=== PATIENT | female | born 1980 | race Asian ===

== ENCOUNTER 2018-08-17 08:55 | Inpatient (IN) | payer OTHER ==
[2018-08-17 10:08] VITALS: BMI 32.5
[2018-08-17] MEDS ORDERED: morphine SULFATE/PF 0.5 MG/ML (2cc Syringe - QUVA) EP ONE (10:43)
[2018-08-17] MEDS ORDERED: ELECTROLYTE-148 SOLN 1,000 ML IV ONE (10:45)
[2018-08-17] MEDS ORDERED: ELECTROLYTE-148 SOLN 1,000 ML IV SCH (10:45)
[2018-08-17] MEDS ORDERED: CITRIC ACID/SODIUM CITRATE 30 ML UNIT-DOSE CUP PO ONE (10:45)
[2018-08-17] MEDS ORDERED: ceFAZolin SODIUM 1 GM VIAL ONE (10:50)
[2018-08-17] MEDS ORDERED: OXYTOCIN 20 UNITS in 0.9% NS 20 UNIT/1,000 ML INFUS.BAG IV ONE ×2 (11:17→14:26)
[2018-08-17] MEDS ORDERED: OXYTOCIN 10 UNITS/ML VIAL ONE (11:28)
[2018-08-17] MEDS ORDERED: METHYLERGONOVINE MALEATE 0.2 MG/1 ML AMP IM PRN (12:39)
[2018-08-17] MEDS ORDERED: IBUPROFEN 600 MG TABLET (FP) PO PRN (12:39)
[2018-08-17] MEDS ORDERED: IBUPROFEN 800 MG/8 ML IJ IVPB PRN (12:39)
--- NOTE | 2018-08-17 12:45 | HP ---
Past Medical History - Admission History Source: Patient Limitations to Obtaining History: No Limitations - Past Medical History ...: 6 ...Para: 4 ...Term: 4 ...: 0 ...Spon : 0 ...Induced : 1 ...Multiple Gestation: 0 ...LMP: 11/16/17 ... Weeks Gestation by Dates: 39.1 ...EDC by Dates: 08/23/18 ...EDC by Sono: 08/18/18 - Past Surgical History Past Surgical History: Yes: (x3) Hx Myomectomy: No Hx Transabdominal Cerclage: No - Smoking History Smoking history: Never smoked Have you smoked in the past 12 months: No - Alcohol/Substance Use Hx Alcohol Use: No History of Substance Use: reports: None - Social History Usual Living Arrangement: Yes: With Spouse History of Recent Travel: No Home Medications - Allergies Allergies/Adverse Reactions: Allergies Allergy/AdvReac Type Severity Reaction Status Date / Time No Known Allergies Allergy Verified 08/17/18 09:41 - Home Medications Home Medications: Ambulatory Orders Mv-Mn/Iron/FA/Herbal/Digestive [ One Tablet] 1 each PO DAILY 12/12/15 Ibuprofen [Motrin -] 600 mg PO QID #28 tablet 12/16/15 Review of Systems - Review of Systems Constitutional: reports: No Symptoms Eyes: reports: No Symptoms HENT: reports: No Symptoms Neck: reports: No Symptoms Cardiovascular: reports: No Symptoms Respiratory: reports: No Symptoms Gastrointestinal: reports: No Symptoms Genitourinary: reports: No Symptoms Breasts: reports: No Symptoms Reported Musculoskeletal: reports: No Symptoms Integumentary: reports: No Symptoms Neurological: reports: No Symptoms Endocrine: reports: No Symptoms Hematology/Lymphatic: reports: No Symptoms Psychiatric: reports: No Symptoms Physical Exam - Maternity Vital Signs: Vital Signs Temperature 98 F 08/17/18 09:48 Pulse Rate 69 08/17/18 09:48 Respiratory Rate 18 08/17/18 09:48 Blood Pressure 109/77 08/17/18 09:48 O2 Sat by Pulse Oximetry (%) Constitutional: Yes: Well Nourished, No Distress Neck: Yes: WNL Lungs: Clear to auscultation Breast(s): Yes: WNL - Abdominal Exam/OB Number of Fetuses: Single Presentation: Vertex Contractions: No Monitor Mode: External Category: I Accelerations: Non-Uniform Decelerations: None - Vaginal Exam/OB Amniotic Membrane Status: Intact Presentation: Vertex/Position - Physical Exam Musculoskeletal: Yes: WNL Extremities: Yes: WNL Hemorrhage Risk Assessment - Risk Factors Risk Score: 1 Risk Level: Medium Risk Problem List - Problems (1) Previous delivery affecting , antepartum Code(s): O34.21 - MATERNAL CARE FOR SCAR FROM PREVIOUS * DO NOT USE * Assessment/Plan Previous CS x 4 iup at 39 weeks plan repeat section
--- NOTE | 2018-08-17 12:49 | OP ---
Operative Note - Note: Operative Date: 08/17/18 Pre-Operative Diagnosis: Previous Section Operation: Repeat Section Post-Operative Diagnosis: Same as Pre-op Surgeon: Olive Patino [facility] [employer] Checkerer Specials: Moshe Wiseman Anesthesia: General Estimated Blood Loss (mls): 600 Operative Report Dictated: Yes
[2018-08-17 13:22] LABS: VENOUS PC02 42.8 mmHg (41-51); VENOUS PH 7.36 (7.31-7.41); VENOUS PO2 32.2 mmHg (30-40)
[2018-08-17 13:28] LABS: ARTERIAL BLD GAS O2 SATURATION 35.1 % (95-98); ARTERIAL BLOOD GAS BASE EXCESS -3.1 meq/l (-2-2); ARTERIAL BLOOD GAS PCO2 55.8 mmHg (35-45); ARTERIAL BLOOD GAS pH 7.27 (7.35-7.45)
[2018-08-17] MEDS ORDERED: ONDANSETRON 4 MG/2 ML VIAL ONE (14:30)
[2018-08-17] MEDS: ONDANSETRON 4 MG/2 ML VIAL IVPUSH PRN ×2 (14:30→18:28)
[2018-08-17] MEDS ORDERED: TUBERCULIN PPD 5 TU/0.1ML SYRINGE (IN PATIENT USE ONLY) ID ONE ×2 (14:45→17:00)
[2018-08-18] MEDS: OXYTOCIN 20 UNITS in 0.9% NS 20 UNIT/1,000 ML INFUS.BAG IV SCH (00:21)
[2018-08-18] MEDS: ELECTROLYTE-148 SOLN 1,000 ML IV SCH (00:22)
[2018-08-18 08:29] LABS: BASO % 0.4 % (0-2.0); EOS % 0.7 % (0-4.5); HEMATOCRIT 35.5 % (32.4-45.2); HEMOGLOBIN 11.7 GM/dL (10.7-15.3); LYMPH % 5.9 % (8-40); MCH 29.1 pg (25.7-33.7); MEAN CELL VOLUME 88.3 fl (80-96); MEAN PLT VOLUME 9.3 fl (7.5-11.1); MONO % 4.5 % (3.8-10.2); NEUT % 88.5 % (42.8-82.8); PLATELET COUNT 172 K/MM3 (134-434); RBC 4.02 M/mm3 (3.60-5.2); RDW 15.3 % (11.6-15.6); WHITE BLOOD COUNT 12.5 K/mm3 (4.0-10.0)
--- NOTE | 2018-08-18 08:54 | PN ---
Post Progress Note - Subjective Subjective: Pt seen/evaluated and doing well. OOB to BR without issues. Pain controlled. Tolerating clears. No complaints. Post Day: 1 Type of Delivery: Repeat C/S Vital Signs: Vital Signs Temperature 98.7 F 08/18/18 07:30 Pulse Rate 65 08/18/18 07:30 Respiratory Rate 18 08/18/18 07:30 Blood Pressure 120/75 08/18/18 07:30 O2 Sat by Pulse Oximetry (%) 98 08/17/18 21:00 Breast Exam: Yes: Soft Uterus: Yes: Fundus Firm Incision: Yes: Dressing dry and intact Abdomen/GI: Yes: Abdomen soft Lochia: Yes: Rubra Lochia, amount: Small Extremities: No: Edema Perineum: Yes: Intact Activity: Ambulating - Labs Labs: CBC WBC 12.5 K/mm3 (4.0-10.0) H 08/18/18 07:30 RBC 4.02 M/mm3 (3.60-5.2) 08/18/18 07:30 Hgb 11.7 GM/dL (10.7-15.3) 08/18/18 07:30 Hct 35.5 % (32.4-45.2) 08/18/18 07:30 MCV 88.3 fl (80-96) 08/18/18 07:30 MCH 29.1 pg (25.7-33.7) 08/18/18 07:30 MCHC 33.0 g/dl (32.0-36.0) 08/18/18 07:30 RDW 15.3 % (11.6-15.6) 08/18/18 07:30 Plt Count 172 K/MM3 (134-434) D 08/18/18 07:30 MPV 9.3 fl (7.5-11.1) 08/18/18 07:30 Absolute Neuts (auto) 11.1 K/mm3 (1.5-8.0) H 08/18/18 07:30 Neutrophils % 88.5 % (42.8-82.8) H 08/18/18 07:30 Lymphocytes % 5.9 % (8-40) L D 08/18/18 07:30 Monocytes % 4.5 % (3.8-10.2) 08/18/18 07:30 Eosinophils % 0.7 % (0-4.5) 08/18/18 07:30 Basophils % 0.4 % (0-2.0) 08/18/18 07:30 Nucleated RBC % 0 % (0-0) 08/18/18 07:30 Problem List - Problems (1) delivery delivered Code(s): O82 - ENCOUNTER FOR DELIVERY WITHOUT INDICATION Assessment/Plan Await CBC encourage ambulation advance diet as tolerated routine care
[2018-08-18] MEDS ORDERED: DIPHTH,PERTUSS(ACELL),TET 0.5 ML DISP.SYRIN IM ONE (10:00)
[2018-08-18] MEDS ORDERED: oxyCODONE HCL 5 MG TABLET PO PRN (12:39)
[2018-08-18] MEDS ORDERED: BISACODYL 10 MG SUPP.RECT RC PRN (12:39)
--- NOTE | 2018-08-18 13:30 | PN ---
Progress Note (short form) - Note Progress Note: Anesthesia POD#1 S/P under Spinal and Duramorph VSS,no N/V,legs are strong,no itch. tolerating orals. Kaitlynn Sales MD
[2018-08-18] MEDS: oxyCODONE HCL 5 MG TABLET PO PRN ×2 (14:04→22:05)
[2018-08-18] MEDS: SIMETHICONE 80 MG TAB.CHEW (FP) PO PRN ×2 (14:06→22:03)
[2018-08-18] MEDS: FERROUS SO4 325 MG TABLET (FP) PO SCH (17:30)
[2018-08-18] MEDS: ACETAMINOPHEN 325 MG TABLET (FP) PO PRN (22:04)
--- NOTE | 2018-08-19 06:29 | PN ---
Post Progress Note Type of Delivery: Repeat C/S Vital Signs: Vital Signs Temperature 98.7 F 08/18/18 22:00 Pulse Rate 93 H 08/18/18 22:00 Respiratory Rate 18 08/18/18 22:00 Blood Pressure 146/81 08/18/18 22:00 O2 Sat by Pulse Oximetry (%) 98 08/17/18 21:00 Uterus: Yes: Fundus Firm Incision: Yes: Dressing dry and intact Abdomen/GI: Yes: Abdomen soft Lochia: Yes: Rubra Lochia, amount: Small Extremities: Yes: Calves non-tender, Edema. No: Calf tenderness Perineum: Yes: Intact. No: Laceration Activity: Ambulating - Labs Labs: CBC WBC 12.5 K/mm3 (4.0-10.0) H 08/18/18 07:30 RBC 4.02 M/mm3 (3.60-5.2) 08/18/18 07:30 Hgb 11.7 GM/dL (10.7-15.3) 08/18/18 07:30 Hct 35.5 % (32.4-45.2) 08/18/18 07:30 MCV 88.3 fl (80-96) 08/18/18 07:30 MCH 29.1 pg (25.7-33.7) 08/18/18 07:30 MCHC 33.0 g/dl (32.0-36.0) 08/18/18 07:30 RDW 15.3 % (11.6-15.6) 08/18/18 07:30 Plt Count 172 K/MM3 (134-434) D 08/18/18 07:30 MPV 9.3 fl (7.5-11.1) 08/18/18 07:30 Absolute Neuts (auto) 11.1 K/mm3 (1.5-8.0) H 08/18/18 07:30 Neutrophils % 88.5 % (42.8-82.8) H 08/18/18 07:30 Lymphocytes % 5.9 % (8-40) L D 08/18/18 07:30 Monocytes % 4.5 % (3.8-10.2) 08/18/18 07:30 Eosinophils % 0.7 % (0-4.5) 08/18/18 07:30 Basophils % 0.4 % (0-2.0) 08/18/18 07:30 Nucleated RBC % 0 % (0-0) 08/18/18 07:30 Problem List - Problems (1) delivery delivered Code(s): O82 - ENCOUNTER FOR DELIVERY WITHOUT INDICATION Assessment/Plan Hgb 11.7 encourage ambulation advance diet as tolerated routine care
[2018-08-19] MEDS: ACETAMINOPHEN 325 MG TABLET (FP) PO PRN ×2 (08:56→17:08)
[2018-08-19] MEDS: FERROUS SO4 325 MG TABLET (FP) PO SCH ×2 (08:56→17:07)
[2018-08-19] MEDS: oxyCODONE HCL 5 MG TABLET PO PRN ×2 (08:57→17:07)
[2018-08-20] MEDS: SIMETHICONE 80 MG TAB.CHEW (FP) PO PRN (04:32)
[2018-08-20] MEDS: ACETAMINOPHEN 325 MG TABLET (FP) PO PRN (04:32)
[2018-08-20] MEDS: oxyCODONE HCL 5 MG TABLET PO PRN (04:32)
[2018-08-20] MEDS: ELECTROLYTE-148 SOLN 1,000 ML IV SCH ×2 (04:34→04:35)
[2018-08-20] MEDS: OXYTOCIN 20 UNITS in 0.9% NS 20 UNIT/1,000 ML INFUS.BAG IV SCH (04:35)
[2018-08-20 08:07] VITALS: BP 139/89; PULSE 65; TEMP 98.1
[2018-08-20 09:22] LABS: BASO % 0.4 % (0-2.0); EOS % 2.1 % (0-4.5); HEMATOCRIT 35.4 % (32.4-45.2); HEMOGLOBIN 11.8 GM/dL (10.7-15.3); LYMPH % 13.2 % (8-40); MCH 29.4 pg (25.7-33.7); MCHC 33.3 g/dl (32.0-36.0); MEAN CELL VOLUME 88.4 fl (80-96); MEAN PLT VOLUME 8.6 fl (7.5-11.1); MONO % 4.9 % (3.8-10.2); NEUT % 79.4 % (42.8-82.8); PLATELET COUNT 226 K/MM3 (134-434); RBC 4.01 M/mm3 (3.60-5.2); RDW 15.4 % (11.6-15.6); WHITE BLOOD COUNT 8.6 K/mm3 (4.0-10.0)
--- NOTE | 2018-08-20 09:24 | DS ---
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 Vital Signs: Vital Signs Temperature 98.1 F 08/20/18 08:05 Pulse Rate 65 08/20/18 08:05 Respiratory Rate 18 08/20/18 08:05 Blood Pressure 139/89 08/20/18 08:05 O2 Sat by Pulse Oximetry (%) 98 08/17/18 21:00 Constitutional: Yes: Well Nourished, No Distress, Calm Eyes: Yes: EOM Intact HENT: Yes: Atraumatic, Normocephalic Neck: Yes: Trachea Midline Cardiovascular: Yes: Regular Rate and Rhythm Respiratory: Yes: Regular, CTA Bilaterally Gastrointestinal: Yes: Normal Bowel Sounds, Soft ....Post : Yes: Uterus firm, Uterus non-tender Wound/Incision: Yes: Clean/Dry, Well Approximated (per nursing staff) Neurological: Yes: Alert, Oriented Psychiatric: Yes: Alert, Oriented Delivery - Delivery Section: Repeat, Low Flap Transverse Type of Anesthesia: Spinal Episiotomy/Laceration: None EBL (cc): 600 Delivery, Single - Stages of Labor Date of Delivery: 08/17/18 Time of Delivery: 11:31 Time Placenta Delivered: 11:33 Placenta: Yes: Manual Removal - 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 She underwent uncomplicated procedure and post op recovery and was discharged home on post op day 3. Condition: Good - Instructions Diet, Activity, Other Instructions: Physical activity Resume your normal everyday activity as tolerated no heavy lifting or exercise until seen by your surgeon. You may walk unlimited devonte of and climb stairs. You may resume driving the car when you feel safe and comfortable behind the wheel. No sexual activity as instructed. Wound care If you have a bandage, leave it on, and keep dry for 48-72 hours. After that time discard the outer bandage. If they are tapes on the skin under the out of bandage leave them in place. They will peel off in the next 7 to 10 days. Do Not Peel them off. You may shower the day after surgery. If there are tapes present on the skin, you may shower over them. Diet There are no dietary restrictions. Eat healthy, high-fiber foods. Drink 6 to 8 glasses of liquid each day. This will assist in keeping your bowels are regular. Pain management You may take Tylenol or acetaminophen or Ibuprofen (for example, Motrin, Advil etc.) from my pain prescription medication is ordered should be taken as prescribed for moderate to severe pain. Call MD for any of the following: Severe pain not relieved by medication Fever of 101 or higher Excessive bleeding or drainage on dressing Inability to urinate Disposition: HOME - Home Medications Comprehensive Discharge Medication List: Ambulatory Orders Mv-Mn/Iron/FA/Herbal/Digestive [ One Tablet] 1 each PO DAILY 12/12/15 Ibuprofen [Motrin -] 600 mg PO QID #28 tablet 12/16/15 Ibuprofen [Motrin -] 600 mg PO QID PRN #28 tablet 08/20/18
[2018-08-20] MEDS: FERROUS SO4 325 MG TABLET (FP) PO SCH (10:01)
--- NOTE | 2018-08-22 16:45 | PATH ---
Surgical Pathology Report Patient Name: SHAWN ROMERO [facility]. Rec. 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 Specimen(s) Received PLACENTA Clinical History , 39 weeks EGA , previous x4 Final Diagnosis PLACENTA: THIRD TRIMESTER PLACENTA WITH FOCAL INFARCTION (2.2 CM IN GREATEST DIMENSION), AND MILD CHRONIC DECIDUITIS. TRIVASCULAR CORD. MEMBRANES WITH NO DIAGNOSTIC ABNORMALITIES. Electronically Signed Debora Dias M.D. Gross Description The specimen is received fresh labeled placenta and is a 390 gram, 14.5 x 13.0 x 2.8 cm. placenta with attached membranes and umbilical cord. The attached membranes are snowden, translucent with focal opacities and insert marginally. The umbilical cord measures 9 cm. in length and averages 1 cm. in diameter. The cord inserts eccentrically, 5.5 cm. to the nearest margin. No true knots or strictures are identified. Cut surface of the umbilical cord reveals 3 vessels. The surface is lyle-blue with minimal fibrin deposition and appropriate caliber vessels. The maternal surface is red-brown with focal defects. Sectioning reveals a 2.2 cm greatest dimension snowden, firm intraparenchymal lesion. The remaining placental parenchyma is red-brown and spongy. 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 08/21/2018 [facility]08/21/2018
== END 2018-08-20 14:10 | disposition home or self-care (01) | DRG 788 ==
LOC: JLDR 08:55 → J3W 14:42
PROVIDERS: ADMIT Obstetrics & Gynecology; ATTEND Obstetrics & Gynecology
PROC: 10D00Z1 Extraction of Products of Conception, Low, Open Approach (ICD-10-PCS; principal; 2018-08-17)
DX: O34.211 Maternal care for low transverse scar from previous cesarean delivery (principal); Z3A.39 39 weeks gestation of pregnancy; Z37.0 Single live birth
CPT/HCPCS: 36415; 36600; 82803; 85025; 88307-TC; 90715